=== PATIENT | female | born 1995 | race Caucasian/White ===

== ENCOUNTER → 2022-06-05 | Emergency (ER) | payer OTHER ==
[~2022-06-05] VITALS: Ht 160 cm; Wt 63.5 kg
== END | disposition home or self-care (01) ==
LOC: ER 14:39
DX: S40.022A Contusion of left upper arm, initial encounter (principal); S40.012A Contusion of left shoulder, initial encounter; V49.9XXA Car occupant (driver) (passenger) injured in unspecified traffic accident, initial encounter; Y93.9 Activity, unspecified; Y92.9 Unspecified place or not applicable; Y99.9 Unspecified external cause status; M79.602 Pain in left arm; M94.0 Chondrocostal junction syndrome [Tietze]